=== PATIENT | female | born 1940 | race Caucasian/White ===

== ENCOUNTER 2018-07-04 12:59 | Inpatient (IN) | payer OTHER ==
[2018-07-04] MEDS ORDERED: NACL 0.9% 3 ML SYG IV (13:30)
[2018-07-04] MEDS ORDERED: ACETAMINOPHEN 325 MG TAB PO (13:30)
[2018-07-04] MEDS ORDERED: ONDANSETRON 4 MG INJ IV (13:30)
[2018-07-04] MEDS ORDERED: traMADol 50 MG TAB PO (14:30)
[2018-07-04] MEDS ORDERED: hydrALAzine 20 MG INJ IV (14:30)
[2018-07-04] MEDS: CEFTRIAXONE 1 GM/50 ML (PMX) 50 ML IVPB (14:55)
[2018-07-04 15:24] LABS: ADD MAN DIFF? NO
[2018-07-04 15:29] LABS: BASOPHILS % 0.5 % (0.0-2.0); EOSINOPHILS % 0.9 % (0.0-7.0); HEMOGLOBIN 9.9 g/dl (12.0-16.0); LYMPHOCYTES # 2.1 10^3/ul (0.8-2.9); LYMPHOCYTES % 48.8 % (15.0-51.0); MEAN CORPUSCULAR HEMOGLOBIN 31.2 pg (29.0-33.0); MEAN CORPUSCULAR HGB CONC 34.1 g/dl (32.0-37.0); MEAN CORPUSCULAR VOLUME 91.5 fl (82.0-101.0); MEAN PLATELET VOLUME 11.2 fl (7.4-10.4); MONOCYTE # 0.3 10^3/ul (0.3-0.9); NEUTROPHIL # 1.8 10^3/ul (1.6-7.5); NEUTROPHILS % 42.6 % (39.0-77.0); PLATELET COUNT 112 10^3/UL (140-415); RED BLOOD COUNT 3.17 10^6/ul (4.20-5.40); RED CELL DISTRIBUTION WIDTH 13.1 % (11.5-14.5)
[2018-07-04 15:29] LABS: WHITE BLOOD COUNT 4.3 10^3/ul (4.8-10.8)
[2018-07-04 15:37] LABS: HEMOGLOBIN A1C 5.1 % (0-5.9)
[2018-07-04 15:50] LABS: ALANINE AMINOTRANSFERASE 24 IU/L (13-69); ALBUMIN 3.6 g/dl (3.3-4.9); ALKALINE PHOSPHATASE 170 IU/L (42-121); ANION GAP 8 (5-13); ASPARTATE AMINO TRANSFERASE 45 IU/L (15-46); BILIRUBIN,INDIRECT 0.7 mg/dl (0-1.1); BILIRUBIN,TOTAL 0.7 mg/dl (0.2-1.3); BLOOD UREA NITROGEN 12 mg/dl (7-20); CARBON DIOXIDE 21 mmol/L (21-31); CHLORIDE 113 mmol/L (97-110); CREATINE KINASE 67 IU/L (23-200); CREATININE 0.75 mg/dl (0.44-1.00); GLUCOSE 97 mg/dl (70-220); MAGNESIUM 2.1 mg/dl (1.7-2.5); PHOSPHORUS 3.3 mg/dl (2.5-4.9); SODIUM 142 mmol/L (135-144); TOTAL PROTEIN 7.2 g/dl (6.1-8.1)
[2018-07-04 15:51] LABS: C-REACTIVE PROTEIN < 0.5 mg/dl (0.0-0.9)
[2018-07-04 15:58] LABS: CK INDEX 0.9; CK-MB 0.59 ng/ml (0.0-2.4); TROPONIN-I < 0.012 ng/ml (0.000-0.120)
[2018-07-04 16:01] LABS: B-TYPE NATRIURETIC PEPTIDE 574 PG/ML (0-450)
[2018-07-04 16:02] LABS: OSMOLALITY 289 mOsm/kg (280-295)
[2018-07-04 16:03] LABS: FREE T4 (FREE THYROXINE) 1.31 ng/dl (0.85-1.93)
[2018-07-04] MEDS: AZITHROMYCIN 500MG/NS (PMX) 250 ML IVPB (16:26)
[2018-07-04 16:31] LABS: ERYTHROCYTE SEDIMENTATION RATE 30 mm/Hr (0-30)
[2018-07-04 22:29] LABS: ADD UMIC NO; UR ASCORBIC ACID NEGATIVE (NEGATIVE); UR BILIRUBIN (Dip) NEGATIVE (NEGATIVE); UR BLOOD (Dip) NEGATIVE (NEGATIVE); UR CLARITY CLEAR (CLEAR); UR COLOR STRAW (YELLOW); UR GLUCOSE (Dip) NEGATIVE (NEGATIVE); UR KETONES (Dip) NEGATIVE (NEGATIVE); UR LEUKOCYTE ESTERASE (Dip) NEGATIVE Leu/ul (NEGATIVE); UR NITRITE (Dip) NEGATIVE (NEGATIVE); UR SPECIFIC GRAVITY (Dip) 1.006 (1.003-1.030); UR TOTAL PROTEIN (Dip) NEGATIVE (NEGATIVE); UR UROBILINOGEN (Dip) NEGATIVE (NEGATIVE)
[2018-07-04 22:45] LABS: SODIUM,URINE RANDOM 101 mmol/L (30-90)
[2018-07-04 22:50] LABS: CREATININE,URINE RANDOM 25.38 mg/dl (20-320)
[2018-07-04 23:43] LABS: OSMOLALITY,URINE 286 mOsm/kg (250-1200)
[2018-07-05 06:11] LABS: ADD MAN DIFF? NO
[2018-07-05 06:14] LABS: ABNORMAL IP MESSAGE 1; BASOPHILS % 0.6 % (0.0-2.0); EOSINOPHILS # 0.2 10^3/ul (0.0-0.5); EOSINOPHILS % 3.4 % (0.0-7.0); HEMATOCRIT 28.8 % (37.0-47.0); HEMOGLOBIN 9.8 g/dl (12.0-16.0); LYMPHOCYTES # 2.6 10^3/ul (0.8-2.9); LYMPHOCYTES % 52.4 % (15.0-51.0); MEAN CORPUSCULAR HEMOGLOBIN 31.7 pg (29.0-33.0); MEAN CORPUSCULAR VOLUME 93.2 fl (82.0-101.0); MEAN PLATELET VOLUME 11.4 fl (7.4-10.4); MONOCYTE # 0.4 10^3/ul (0.3-0.9); MONOCYTES % 8.7 % (0.0-11.0); NEUTROPHIL # 1.7 10^3/ul (1.6-7.5); NEUTROPHILS % 34.7 % (39.0-77.0); PLATELET COUNT 99 10^3/UL (140-415); RED BLOOD COUNT 3.09 10^6/ul (4.20-5.40); RED CELL DISTRIBUTION WIDTH 13.3 % (11.5-14.5)
[2018-07-05 06:14] LABS: WHITE BLOOD COUNT 4.9 10^3/ul (4.8-10.8)
[2018-07-05 06:39] LABS: PHOSPHORUS 3.7 mg/dl (2.5-4.9)
[2018-07-05 06:39] LABS: CHOLESTEROL 132 mg/dl (100-200); HDL CHOLESTEROL 44 mg/dl (33-92); LDL CHOLESTEROL,CALCULATED 71 mg/dl; TRIGLYCERIDES 83 mg/dl (0-149)
[2018-07-05 06:45] LABS: TROPONIN-I < 0.012 ng/ml (0.000-0.120)
[2018-07-05 06:47] LABS: POSITIVE DIFF @See below
[2018-07-05 07:05] LABS: ANION GAP 10 (5-13); BLOOD UREA NITROGEN 14 mg/dl (7-20); CALCIUM 8.8 mg/dl (8.4-10.2); CARBON DIOXIDE 22 mmol/L (21-31); CHLORIDE 110 mmol/L (97-110); CREATININE 0.83 mg/dl (0.44-1.00); GLUCOSE 83 mg/dl (70-220); POTASSIUM 3.9 mmol/L (3.5-5.1); SODIUM 142 mmol/L (135-144)
[2018-07-05] MEDS: ENOXAPARIN 40 MG/0.4 ML SYG SC (08:13)
[2018-07-05] MEDS: CEFTRIAXONE 1 GM/50 ML (PMX) 50 ML IVPB (14:30)
== END 2018-07-05 15:40 | disposition home or self-care (01) | DRG 194 ==
LOC: 6WM 12:59
DX: J18.9 Pneumonia, unspecified organism (principal); E87.1 Hypo-osmolality and hyponatremia; R07.89 Other chest pain
CPT/HCPCS: 71045; 80048; 80053; 80061; 81003; 82550; 82553; 83036; 83735; 83880; 83930; 83935; 84100; 84155; 84300; 84439; 84443; 84484; 85025; 85651; 86140; 87040; 87086; 93005

== ENCOUNTER 2018-08-23 10:22 | Emergency (ER) | payer OTHER ==
[2018-08-23] MEDS: KETOROLAC 15 MG INJ IV (11:46)
[2018-08-23 12:31] LABS: ADD MAN DIFF? NO
[2018-08-23 12:36] LABS: WHITE BLOOD COUNT 4.9 10^3/ul (4.8-10.8)
[2018-08-23 12:36] LABS: BASOPHILS % 0.6 % (0.0-2.0); EOSINOPHILS % 0.8 % (0.0-7.0); HEMATOCRIT 27.7 % (37.0-47.0); HEMOGLOBIN 9.6 g/dl (12.0-16.0); LYMPHOCYTES # 1.6 10^3/ul (0.8-2.9); LYMPHOCYTES % 32.6 % (15.0-51.0); MEAN CORPUSCULAR HEMOGLOBIN 31.9 pg (29.0-33.0); MEAN CORPUSCULAR HGB CONC 34.7 g/dl (32.0-37.0); MEAN PLATELET VOLUME 11.8 fl (7.4-10.4); MONOCYTE # 0.7 10^3/ul (0.3-0.9); MONOCYTES % 13.2 % (0.0-11.0); NEUTROPHIL # 2.6 10^3/ul (1.6-7.5); NEUTROPHILS % 52.6 % (39.0-77.0); PLATELET COUNT 125 10^3/UL (140-415); RED BLOOD COUNT 3.01 10^6/ul (4.20-5.40)
[2018-08-23 12:40] LABS: ANION GAP 9 (5-13); BLOOD UREA NITROGEN 11 mg/dl (7-20); CALCIUM 8.6 mg/dl (8.4-10.2); CARBON DIOXIDE 21 mmol/L (21-31); CHLORIDE 103 mmol/L (97-110); CREATININE 0.82 mg/dl (0.44-1.00); GLUCOSE 100 mg/dl (70-220); POTASSIUM 4.4 mmol/L (3.5-5.1); SODIUM 133 mmol/L (135-144)
[2018-08-23 12:51] LABS: TROPONIN-I < 0.012 ng/ml (0.000-0.120)
== END 2018-08-23 14:11 | disposition home or self-care (01) ==
LOC: E/R 14:11
DX: R07.89 Other chest pain (principal); D64.9 Anemia, unspecified; R40.2142 Coma scale, eyes open, spontaneous, at arrival to emergency department; R40.2362 Coma scale, best motor response, obeys commands, at arrival to emergency department; R40.2252 Coma scale, best verbal response, oriented, at arrival to emergency department
CPT/HCPCS: 71045; 80048; 84484; 85025; 93005; 96374; 99285-25